=== PATIENT | female | born 2000 | race Caucasian/White ===

== ENCOUNTER 2020-12-09 15:48 | Emergency (ER) | payer MEDICAID ==
[~2020-12-09] VITALS: Ht 157.5 cm; Wt 56.0 kg
[2020-12-09 17:59] LABS: BASOPHILS % (AUTO) 1 % (0-1); EOSINOPHILS % (AUTO) 0 % (1-7); LYMPHOCYTES % (AUTO) 16 % (22-44); MEAN CORPUSCULAR HEMOGLOBIN 33.1 pg (27.0-34.8); MEAN CORPUSCULAR HGB CONC 34.3 g/dL (32.4-35.8); MEAN PLATELET VOLUME 9.1 fL (7.4-10.4); MONOCYTES % (AUTO) 7 % (2-9); NEUTROPHILS % (AUTO) 76 % (42-75); PLATELET COUNT 291 x10^3/uL (130-400); RED BLOOD COUNT 4.74 x10^6/uL (3.82-5.3); RED CELL DISTRIBUTION WIDTH 12.9 % (9.6-15.2)
[2020-12-09 18:13] LABS: ALBUMIN 4.1 g/dL (3.4-5.0); ANION GAP 10 mmol/L (5-15); CALCIUM 9.5 mg/dL (8.5-10.1); CHLORIDE 106 mmol/L (98-107)
[2020-12-09 18:19] LABS: ALANINE AMINOTRANSFERASE 23 U/L (12-78); ALKALINE PHOSPHATASE 58 U/L (45-117); BILIRUBIN,TOTAL 0.7 mg/dL (0.2-1.0); CREATININE 0.64 mg/dL (0.55-1.02); TOTAL PROTEIN 7.9 g/dL (6.4-8.2)
--- NOTE | 2020-12-09 18:20 | NUR ---
ACQUISITIONS ANALYST: PT TO ROOM FROM [facility]
--- NOTE | 2020-12-09 18:21 | NUR ---
PATIENT WALKED BACK FROM TRIAGE WITH CHIEF C/O ABD PAIN X1 WEEK. PATIENT UNABLE TO EAT OR DRINK DUE TO PAIN. SEEN AT [facility] SUNDAY FOR SAME, PAIN HAS NOT IMPROVED. PATIENT REPORTS NAUSEA AND VOMITING, NO DIARRHEA. DENIES FEVER. DAVIS, FRIEND AT BEDSIDE, CALL LIGHT WITHIN REACH.
--- NOTE | 2020-12-09 18:26 | NUR ---
PATIENT AMBULATED TO BATHROOM WITH STEADY GAIT FOR URINE SAMPLE.
--- NOTE | 2020-12-09 18:37 | NUR ---
URINE COLLECTED AND SENT TO LAB, PATIENT CONNECTED TO MONITOR, VSS, FRIEND AT BEDSIDE, CALL LIGHT WITHIN REACH.
--- NOTE | 2020-12-09 18:46 | NUR ---
REPORT GIVEN TO MARIA TERESA BRADLEY FOR TRANSFER OF PATIENT CARE.
--- NOTE | 2020-12-09 18:47 | NUR ---
REPORT RECEIVED FROM MARC MOREL
[2020-12-09 18:53] LABS: MICROSCOPIC NOT IND
--- NOTE | 2020-12-09 18:53 | NUR ---
PT SITTING UPRIGHT ON GURNEY, CONTINUOUS MONITORIGN IN PLACE. WILLN, VSS. PT DENIES ANY NEEDS AT THIS TIME. CALL LIGHT AND PERSONAL BELONGINGS WITHIN REACH.
[2020-12-09] MEDS ORDERED: MAALOX/HYOSCYAMINE/LIDOCAINE 45 ML BTL PO ONE (19:00)
[2020-12-09] MEDS ORDERED: METOCLOPRAMIDE 5 MG/ML, 2ML IM ONE (19:00)
[2020-12-09] MEDS ORDERED: METOCLOPRAMIDE 5 MG/ML, 2ML ONE (19:01)
[2020-12-09] MEDS ORDERED: MAALOX/HYOSCYAMINE/LIDOCAINE 45 ML BTL ONE (19:01)
--- NOTE | 2020-12-09 20:01 | NUR ---
PT PROVIDED WATER PER ERP ORDER FOR PO CHALLENGE. 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
--- NOTE | 2020-12-09 21:01 | NUR ---
20G RT AC IV STARTED IN CT
[2020-12-09] MEDS ORDERED: OMNIPAQUE 350 MG/ML, 100ML BOTTLE ONE (21:03)
--- NOTE | 2020-12-09 21:07 | NUR ---
PT RETURNED FROM CT
[2020-12-09] MEDS ORDERED: DROPERIDOL 2.5MG/ML, 2ML IVPush ONE (22:00)
[2020-12-09 23:05] VITALS: BP 130/85
--- NOTE | 2020-12-09 23:37 | NUR ---
Patient given discharge instructions and they have confirmed that they understand the instructions. Patient ambulatory with steady gait.
== END 2020-12-09 23:38 | disposition home or self-care (01) ==
LOC: ED 18:50
DX: R10.84 Generalized abdominal pain (principal); R10.13 Epigastric pain; R11.2 Nausea with vomiting, unspecified; R94.31 Abnormal electrocardiogram [ECG] [EKG]
CPT/HCPCS: 36415; 74022; 74177; 76705; 80053; 81003; 83690; 84703; 85025; 93005; 96372; 96374; 99285; J1790; J2765; Q9967